=== PATIENT | female | born 1975 | race African-American/Black ===

== ENCOUNTER 2018-12-15 17:05 | Emergency (ER) | payer MEDICAID ==
[~2018-12-15] VITALS: Ht 160 cm; Wt 57.0 kg
[~2018-12-15 17:05] MED LIST: PREN1TAB49
[2018-12-15] MEDS ORDERED: SODIUM CHLORIDE 0.9% 1,000 ML IV ONE ×2 (18:31→21:34)
[2018-12-15] MEDS ORDERED: ONDANSETRON HCL 4MG/2ML INJ IV STA (18:31)
[2018-12-15] MEDS ORDERED: MORPHINE SULFATE 4 MG/ML CPJ (NOT FOR IM USE) IV STA (18:31)
[2018-12-15] MEDS ORDERED: FAMOTIDINE 20MG/2ML VIAL IV ONE (18:45)
[2018-12-15] MEDS ORDERED: LORAZEPAM 2MG/ML CPJ IV ONE ×2 (18:45→22:15)
[2018-12-15 18:49] LABS: BASOPHILS % 0.2 % (0.0-2.0); EOSINOPHILS % 0.2 % (0.0-5.0); HEMATOCRIT. 41.6 % (36.0-48.0); HEMOGLOBIN. 13.5 g/dL (12.0-16.0); LYMPHOCYTES % 23.1 % (20.0-50.0); MEAN CORPUSCULAR HEMOGLOBIN 24.8 pg (28.0-32.0); MEAN CORPUSCULAR VOLUME 76.3 fL (81.0-99.0); MEAN PLATELET VOLUME 8.8 fl (7.4-10.4); MONOCYTES % 10.3 % (2.0-8.0); NEUTROPHILS % 66.2 % (40.0-76.0); PLATELET 332 x1000/uL (130-400); RED BLOOD CELL COUNT 5.45 mill/uL (4.2-5.4); RED CELL DISTRIBUTION WIDTH 14.5 % (11.6-14.6)
[2018-12-15 18:55] LABS: CHLORIDE 105 mEq/L (98-107)
[2018-12-15 18:58] LABS: HCG SCREEN NEGATIVE
[2018-12-15 18:59] LABS: ETHANOL BLOOD < 10 mg/dL
[2018-12-15 20:24] LABS: CLARITY URINE CLEAR (CLEAR); COLOR URINE YELLOW (YELLOW); KETONES URINE 2+ (NEGATIVE); LEUKOCYTE ESTERASE URINE NEGATIVE (NEGATIVE); NITRITE URINE NEGATIVE (NEGATIVE); OCCULT BLOOD URINE NEGATIVE (NEGATIVE); PH URINE >=9.0 (4.5-8.0); PROTEIN URINE TRACE (NEGATIVE); SPECIFIC GRAVITY URINE 1.015 (1.005-1.030); UROBILINOGEN URINE 0.2 E.U./dL (0.2-1.0)
[2018-12-15 20:59] LABS: *AMPHETAMINES SCREEN URINE NEGATIVE (NEGATIVE); *BARBITURATES SCREEN URINE NEGATIVE (NEGATIVE); *BENZODIAZEPINES SCREEN URINE NEGATIVE (NEGATIVE); *COCAINE SCREEN URINE NEGATIVE (NEGATIVE); METHADONE URINE SCREEN NEGATIVE (NEGATIVE)
[2018-12-15 21:00] LABS: PHENCYCLIDINE URINE SCREEN NEGATIVE (NEGATIVE)
[2018-12-15 21:01] LABS: CANNABINOID URINE SCREEN PRESUMTIVE POSITIVE (NEGATIVE); OPIATES URINE SCREEN PRESUMTIVE POSITIVE (NEGATIVE)
[2018-12-15] MEDS ORDERED: METOCLOPRAMIDE HCL 10MG/2ML VIAL IV ONE (22:15)
[2018-12-15] MEDS ORDERED: KETOROLAC 30MG/ML VIAL IV ONE (22:15)
[2018-12-16] MEDS ORDERED: SODIUM CHLORIDE 0.9% 1,000 ML IV ONE (01:25)
[2018-12-16] MEDS ORDERED: LORAZEPAM 2MG/ML CPJ IV ONE (01:30)
[2018-12-16] MEDS ORDERED: METOCLOPRAMIDE HCL 10MG/2ML VIAL IV ONE (01:30)
[2018-12-16 05:31] VITALS: BP 119/75
[2018-12-16] MEDS ORDERED: ONDANSETRON HCL 4MG/2ML INJ IV STA (05:36)
== END 2018-12-16 05:49 | disposition home or self-care (01) ==
LOC: ER 17:05
DX: F12.188 Cannabis abuse with other cannabis-induced disorder (principal); E86.0 Dehydration; K29.70 Gastritis, unspecified, without bleeding; Z88.0 Allergy status to penicillin
CPT/HCPCS: 36415; 74176; 80053; 80305; 80320; 81003; 83605; 83690; 84484; 84703; 85025; 96361; 96374; 96375; 96376; 99284; J1885; J2060; J2270; J2405; J2765; J3490; J7030; G0480